=== PATIENT | female | born 1970 | race Caucasian/White ===

== ENCOUNTER 2024-12-25 20:29 | Emergency (ER) | payer BC ==
[2024-12-25 20:37] VITALS: BP 129/65; PULSE 68; RESP 18; TEMP 98.4; BMI 33.3
[2024-12-25 22:15] LABS: EPI CELLS 9 /uL (0-25.1); HYALINE CASTS 0 /uL (0-3.1); PH,URINE 5.5 (5.0-8.0); URINE APPEARANCE CLEAR; URINE BACTERIA 92 /uL (0-1359); URINE BILIRUBIN NEGATIVE (NEGATIVE); URINE COLOR YELLOW; URINE GLUCOSE (UA) NEGATIVE (NEGATIVE); URINE KETONE NEGATIVE (NEGATIVE); URINE LEUK ESTERASE NEGATIVE (NEGATIVE); URINE NITRITE NEGATIVE (NEGATIVE); URINE PROTEIN NEGATIVE (NEGATIVE); URINE RBC 1063 /uL (0-23.9); URINE UROBILINOGEN 0.2 mg/dL (0.2-1.0); URINE WBC 6 /uL (0-25.8)
[2024-12-25 23:25] LABS: HCG,QUALITATIVE URINE Negative
== END 2024-12-25 23:37 | disposition home or self-care (01) ==
LOC: JER 20:29
DX: N93.9 Abnormal uterine and vaginal bleeding, unspecified (principal); R10.30 Lower abdominal pain, unspecified
CPT/HCPCS: 81003; 84703; 87086; 99283-25